=== PATIENT | male | born 1995 | race American Indian/Alaskan Native ===

== ENCOUNTER 2021-07-22 18:12 | Emergency (ER) | payer SELFPAY ==
[2021-07-22 18:20] VITALS: BP 118/69
[2021-07-22] MEDS ORDERED: TETANUS,DIPH,PERTUSS(ACELL) VACCINE 0.5 ML SYRINGE IM ONE (22:14)
[2021-07-22] MEDS ORDERED: traMADol 50 MG TAB PO ONE (22:14)
[2021-07-22] MEDS ORDERED: levoFLOXacin 500 MG TAB PO ONE (22:14)
--- NOTE | 2021-07-22 22:43 | XRay Report ---
XR foot 2V LT INDICATION / CLINICAL INFORMATION: foot pain stepped no nail foreign body COMPARISON: None available. FINDINGS: BONES / JOINT(S): No acute fracture or subluxation. Lisfranc interval is maintained. No significant a rthritis. SOFT TISSUES: No focal soft tissue abnormality is identified. There is no soft tissue gas or radiopaq ue foreign body. ADDITIONAL FINDINGS: None. IMPRESSION: No acute findings in the left foot. No radiopaque foreign body or acute fracture. Signer Name: Jerald Biggs MD Signed: 07/22/2021 10:38 PM Workstation Name: [id number]
--- NOTE | 2021-07-22 23:07 | Emergency Department Report ---
ED General Adult HPI - General Chief complaint: Puncture Wound Stated complaint: STEEPED ON JESSICA NAIL Time Seen by Provider: 07/22/21 22:14 Source: patient Mode of arrival: Ambulatory Limitations: No Limitations - History of Present Illness Initial comments: Patient 26-year-old male who stepped on a jessica nail today. Now complains of 5/10 left foot pain. Patient states unable to tolerate weightbearing there is no laceration no bleeding no deformity. No numbness or tingling. Patient states he removed no self questions foreign body remaining. Last tetanus is unknown. Severity scale (0 -10): 7 - Related Data Previous Rx's Medication Instructions Recorded Last Taken Type Ciprofloxacin HCl 500 mg PO BID 7 Days #14 tab 07/22/21 Unknown Rx traMADoL [Ultram] 50 mg PO Q6HR PRN #12 tablet 07/22/21 Unknown Rx Allergies Allergy/AdvReac Type Severity Reaction Status Date / Time No Known Allergies Allergy Verified 07/22/21 18:17 ED Review of Systems ROS: Stated complaint: STEEPED ON JESSICA NAIL Other details as noted in HPI Constitutional: denies: chills, fever Eyes: denies: eye pain, eye discharge, vision change ENT: denies: ear pain, throat pain Respiratory: denies: cough, shortness of breath, wheezing Cardiovascular: denies: chest pain, palpitations Endocrine: no symptoms reported Gastrointestinal: denies: abdominal pain, nausea, diarrhea Genitourinary: denies: urgency, dysuria Musculoskeletal: other (Left plantar foot pain) Skin: denies: rash, lesions Neurological: denies: headache, weakness, paresthesias Psychiatric: denies: anxiety, depression Hematological/Lymphatic: denies: easy bleeding, easy bruising ED Past Medical Hx - Past Medical History Previous Medical History?: No - Surgical History Past Surgical History?: No - Medications Home Medications: Home Medications Medication Instructions Recorded Confirmed Last Taken Type Ciprofloxacin HCl 500 mg PO BID 7 Days #14 tab 07/22/21 Unknown Rx traMADoL [Ultram] 50 mg PO Q6HR PRN #12 tablet 07/22/21 Unknown Rx ED Physical Exam - General Limitations: No Limitations General appearance: alert, in no apparent distress - Head Head exam: Present: atraumatic, normocephalic - Eye Eye exam: Present: EOMI Pupils: Present: normal accommodation - ENT ENT exam: Present: mucous membranes moist - Neck Neck exam: Present: normal inspection - Respiratory Respiratory exam: Present: normal lung sounds bilaterally. Absent: respiratory distress, wheezes - Cardiovascular Cardiovascular Exam: Present: regular rate, normal rhythm. Absent: systolic murmur, diastolic murmur, rubs, gallop - GI/Abdominal GI/Abdominal exam: Present: soft, normal bowel sounds - Rectal Rectal exam: Present: deferred - Expanded Lower Extremity Exam Left Foot/Toe exam: Present: full ROM, tenderness (Heel calcaneal region there is no erythema no swelling no deformity there is a small puncture wound no bleeding.), puncture wound, calcaneal tenderness. Absent: swelling, abrasion, laceration, ecchymosis, deformity, crepidus, dislocation, erythema, amputation, foreign body, tenderness at base of 5th metatarsal, nail avulsion, subungual hematoma Neuro vascular tendon exam: Absent: pulse deficit, motor deficit, sensory deficit, tendon deficit Gait: Positive: unable to bear weight - Back Exam Back exam: Present: normal inspection, full ROM. Absent: CVA tenderness (R), CVA tenderness (L) - Neurological Exam Neurological exam: Present: alert, oriented X3, CN II-XII intact, reflexes normal. Absent: motor sensory deficit - Expanded Neurological Exam Expanded Patient oriented to: Present: person, place, time Speech: Present: fluid speech Motor strength exam: RLE: 5, LLE: 5 DTR: ankle (R): 1+, ankle (L): 1+ Best Eye Response (Maikel): (4) open spontaneously Best Motor Response (Maikel): (6) obeys commands Best Verbal Response (Maikel): (5) oriented Maikel Total: 15 - Psychiatric Psychiatric exam: Present: normal affect, normal mood - Skin Skin exam: Present: warm, dry, intact, normal color, other (Puncture wound left heel). Absent: rash ED Course Vital Signs 07/22/21 18:18 Temperature 98.4 F Pulse Rate 86 Respiratory 16 Rate Blood Pressure 118/69 [Left] O2 Sat by Pulse 97 Oximetry ED Medical Decision Making - Radiology Data Radiology results: report reviewed, image reviewed XR foot 2V LT INDICATION / CLINICAL INFORMATION: foot pain stepped no nail foreign body COMPARISON: None available. FINDINGS: BONES / JOINT(S): No acute fracture or subluxation. Lisfranc interval is maintained. No significant arthritis. SOFT TISSUES: No focal soft tissue abnormality is identified. There is no soft tissue gas or radiopaque foreign body. ADDITIONAL FINDINGS: None. IMPRESSION: No acute findings in the left foot. No radiopaque foreign body or acute fracture. Signer Name: Mia Ayala MD Signed: 07/22/2021 10:38 PM Workstation Name: [id number] Transcribed By: SUNNI Dictated By: MIA AYALA MD Electronically Authenticated By: MIA AYALA MD Signed Date/Time: 07/22/212237 DD/ 36 TD/TT: - Medical Decision Making X-ray no foreign body and no soft tissue abnormality. Plan tetanus shot, DC to home with prescriptions. Crutches offloading warm water soaks. Follow-up with primary care doctor in 2 to 3 days. Patient verbalized agreement and understanding with discharge plan. Patient DC'd home in stable condition at this time. Critical care attestation.: If time is entered above; I have spent that time in minutes in the direct care of this critically ill patient, excluding procedure time. ED Disposition Clinical Impression: Puncture wound of foot, left Qualifiers: Encounter type: initial encounter Qualified Code(s): S91.332A - Puncture wound without foreign body, left foot, initial encounter Disposition: 01 HOME / SELF CARE / HOMELESS Is pt being admited?: No Does the pt Need Aspirin: No Condition: Stable Instructions: Puncture Wound, [id number], Crutch Use, Adult, [id number] Additional Instructions: Take medications as prescribed, follow-up with your doctor in 2 to 3 days. Warm water soaks as directed. Return to emergency department if symptoms worsen. Prescriptions: Ciprofloxacin HCl 500 mg PO BID 7 Days #14 tab traMADoL [Ultram] 50 mg PO Q6HR PRN #12 tablet PRN Reason: Pain Referrals: BREANA JULIO MD [Staff Physician] - 3-5 Days Forms: Work/School Release Form(ED) Time of Disposition: 23:10
== END 2021-07-22 23:38 | disposition home or self-care (01) ==
LOC: ED 18:12
DX: S91.332A Puncture wound without foreign body, left foot, initial encounter (principal); W22.8XXA Striking against or struck by other objects, initial encounter; Y93.89 Activity, other specified; Y92.89 Other specified places as the place of occurrence of the external cause; Y99.8 Other external cause status
CPT/HCPCS: 90471; 90715; 99283